=== PATIENT | male | born 1995 | race Two or more races ===

== ENCOUNTER 2022-10-16 07:24 | Emergency (ER) | payer SELFPAY ==
[~2022-10-16] VITALS: Ht 175.3 cm; Wt 90.0 kg
[2022-10-16 08:38] VITALS: BP 110/62
[2022-10-16] MEDS ORDERED: IBUP800T27 PO (08:54)
== END 2022-10-16 08:59 | disposition home or self-care (01) ==
LOC: ER 07:24
DX: S52.201A Unspecified fracture of shaft of right ulna, initial encounter for closed fracture (principal); W51.XXXA Accidental striking against or bumped into by another person, initial encounter; Y93.89 Activity, other specified; Y92.89 Other specified places as the place of occurrence of the external cause; Y99.8 Other external cause status
CPT/HCPCS: 29125; 73110

== ENCOUNTER 2024-05-13 10:28 | Emergency (ER) | payer SELFPAY ==
[~2024-05-13] VITALS: Ht 175.3 cm; Wt 92.0 kg
[~2024-05-13 10:28] MED LIST: IBUP-1456 PO
[2024-05-13] MEDS: cefTRIAXone 1GM/50ML D5W 50 ML IV ONE (11:13)
[2024-05-13] MEDS: fentaNYL CITRATE 100 MCG/2 ML VL IV ONE (11:29)
[2024-05-13] MEDS: NEOMYCIN-BACITRACIN-POLYM UNITDOSE PKG TOP OINT TOP ONE ×2 (11:54→12:27)
[2024-05-13] MEDS: SODIUM CHLORIDE 0.9% 1,000 ML IV ONE (12:27)
[2024-05-13 12:38] VITALS: TEMP 98.5; O2SAT 95
[2024-05-13 12:43] VITALS: BP 141/90; PULSE 80; RESP 20
[2024-05-13] MEDS: MORPHINE SULFATE INJ 2 MG/ml SYRG IV ONE (12:43)
[2024-05-13] MEDS: ONDANSETRON HCL 4 MG/2 ML VIAL IV ONE (12:44)
== END 2024-05-13 17:07 | disposition short-term general hospital (02) ==
LOC: ER 10:28
DX: T21.23XA Burn of second degree of upper back, initial encounter (principal); T22.212A Burn of second degree of left forearm, initial encounter; T31.11 Burns involving 10-19% of body surface with 10-19% third degree burns; X08.8XXA Exposure to other specified smoke, fire and flames, initial encounter; Y93.89 Activity, other specified; Y92.89 Other specified places as the place of occurrence of the external cause; Y99.8 Other external cause status
CPT/HCPCS: 96361; 96365; 96375; 99285; J0696; J2270; J2405; J3010; J7030

== ENCOUNTER 2024-05-15 12:55 | Emergency (ER) | payer SELFPAY ==
[~2024-05-15] VITALS: Ht 175.3 cm; Wt 90.2 kg
[2024-05-15] MEDS: SILVER SULFADIAZINE 1 % TOPICAL CREAM 50GM TOP ONE (15:26)
[2024-05-15] MEDS: MORPHINE SULFATE INJ 2 MG/ml SYRG IM ONE (15:26)
[2024-05-15 15:33] VITALS: TEMP 98.9; O2SAT 98
[2024-05-15 15:56] VITALS: BP 128/80; PULSE 85; RESP 16
== END 2024-05-15 17:01 | disposition home or self-care (01) ==
LOC: ER 12:55
DX: T21.21XD Burn of second degree of chest wall, subsequent encounter (principal); X08.8XXD Exposure to other specified smoke, fire and flames, subsequent encounter; Z88.6 Allergy status to analgesic agent; T31.11 Burns involving 10-19% of body surface with 10-19% third degree burns
CPT/HCPCS: 16020; 96372; 99283; J2270

== ENCOUNTER 2024-05-16 11:14 | Emergency (ER) | payer SELFPAY ==
[~2024-05-16] VITALS: Ht 175.3 cm; Wt 91.0 kg
[2024-05-16 13:00] VITALS: BP 129/55; PULSE 83; RESP 18; TEMP 99.5; O2SAT 98
[2024-05-17] MEDS ORDERED: CEPH500T PO (12:18)
== END 2024-05-16 13:18 | disposition home or self-care (01) ==
LOC: ER 11:14
DX: T30.0 Burn of unspecified body region, unspecified degree (principal); Z88.6 Allergy status to analgesic agent; X08.8XXD Exposure to other specified smoke, fire and flames, subsequent encounter

== ENCOUNTER 2024-05-17 11:20 | Emergency (ER) | payer SELFPAY ==
[~2024-05-17] VITALS: Ht 175.3 cm; Wt 91.2 kg
[2024-05-17] MEDS ORDERED: CEPH500T PO (12:18)
[2024-05-17] MEDS: SILVER SULFADIAZINE 1 % TOPICAL CREAM 50GM TOP ONE (12:26)
[2024-05-17 12:31] VITALS: BP 120/70; PULSE 88; RESP 18; TEMP 98.6; O2SAT 98
== END 2024-05-17 12:49 | disposition home or self-care (01) ==
LOC: ER 11:26
DX: T23.262A Burn of second degree of back of left hand, initial encounter (principal); Z79.899 Other long term (current) drug therapy; X08.8XXA Exposure to other specified smoke, fire and flames, initial encounter; Y93.89 Activity, other specified; Y92.89 Other specified places as the place of occurrence of the external cause; Y99.8 Other external cause status
CPT/HCPCS: 16020

== ENCOUNTER 2024-05-18 18:01 | Emergency (ER) | payer SELFPAY ==
[~2024-05-18] VITALS: Ht 175.3 cm; Wt 90.0 kg
[~2024-05-18 18:01] MED LIST changes: +CEPH500T PO
[2024-05-18 19:48] VITALS: TEMP 98.6
[2024-05-18] MEDS: HYDROcodone-ACET 5/325MG TAB PO ONE (20:22)
[2024-05-18] MEDS: BACITRACIN TOP OINT 1 UD PKG TOP ONE (20:23)
[2024-05-18 22:20] VITALS: BP 128/86; PULSE 89; RESP 18; O2SAT 100
== END 2024-05-18 22:20 | disposition home or self-care (01) ==
LOC: ER 18:01
DX: T21.04XD Burn of unspecified degree of lower back, subsequent encounter (principal); T22.00XD Burn of unspecified degree of shoulder and upper limb, except wrist and hand, unspecified site, subsequent encounter; Z88.6 Allergy status to analgesic agent; Z79.1 Long term (current) use of non-steroidal anti-inflammatories (NSAID); X08.8XXD Exposure to other specified smoke, fire and flames, subsequent encounter

== ENCOUNTER 2024-11-07 20:39 | Emergency (ER) | payer OTHER ==
[~2024-11-07] VITALS: Ht 175.3 cm; Wt 92.8 kg
[2024-11-07] MEDS: ONDANSETRON ODT 4 MG TAB PO ONE (00:40)
[2024-11-07] MEDS: KETOROLAC TROMETH 60MG/2ML VIAL IM ONE (00:45)
--- NOTE | 2024-11-07 21:09 | ED.PDOC ---
General HPI Comments 28-year-old male with no reported PMHx or PSHx presents with a chief complaint of groin pain x 1 hour ago with associated abdominal pain and nausea. Patient states that he worked out and was stretching when he then began to have sudden onset of right testicle pain and right inguinal abdominal pain. Patient reports that he is feeling nauseous, but "I don't have anything to throw up". Patient is tender to touch, unable to complete full physical exam. No other symptoms or modifying factors present at this time. Time Seen by MD: 21:00 Primary Care Provider: NONE Reviewed notes: Medications, Allergies Allergies: Coded Allergies: NO KNOWN ALLERGIES (Unverified , 10/16/22) Home Meds Active Scripts Ondansetron HCl (Ondansetron Hydrochloride) 8 Mg Tab, 8 MG PO Q6HP PRN, #30 TAB Prov:MEKHI MCCALL MD 11/07/24 Cephalexin Monohydrate (Cephalexin) 500 Mg Tab, 1 TAB PO QID, #40 TAB Prov:EJ JOHNSON 05/17/24 Ibuprofen (Ibuprofen) 800 Mg Tab, 1 TAB PO TID, #30 TAB Prov:EJ JOHNSON 10/16/22 Information Source: Patient Mode of Arrival: Ambulatory Severity: Moderate Inability to void: None Timing: Minutes Duration: Since onset Has not urinated for: Minutes Prehospital treatment: None Onset: Spontaneous Symptoms: None History of: None Location: Suprapubic Location male: R Scrotum Penile discharge: None Modifying factors: None Past Medical History PAST MEDICAL HISTORY: Denies Surgical History: Denies all surgeries Family History Family History: Reviewed,noncontributory to illness, Unknown Social History Smoker: Non-Smoker Alcohol: Occasionally Drugs: Denies Drug Use Lives In: Home Constitutional: denies: chills, diaphoresis, fatigue, fever, malaise, sweats, weakness, others EENTM: denies: blurred vision, double vision, ear bleeding, ear discharge, ear drainage, ear pain, ear ringing, eye pain, eye redness, hearing loss, mouth pain, mouth swelling, nasal discharge, nose bleeding, nose congestion, nose pain, photophobia, tearing, throat pain, throat swelling, voice changes, others Respiratory: denies: cough, hemoptysis, orthopnea, SOB at rest, shortness of breath, SOB with excertion, stridor, wheezing, others Cardiovascular: denies: chest pain, dizzy spells, diaphoresis, Dyspnea on exertion, edema, irregular heart beat, left arm pain, lightheadedness, palpitations, PND, syncope, others Gastrointestinal: reports: abdominal pain, nausea; denies: abdomen distended, blood streaked bowels, constipated, diarrhea, dysphagia, difficulty swallowing, hematemesis, melena, poor appetite, poor fluid intake, rectal bleeding, rectal pain, vomiting, others Genitourinary: reports: testicle pain; denies: burning, dysuria, flank pain, frequency, hematuria, incontinence, penile discharge, penile sore, pain, testicle swelling, urgency, others Neurological: denies: dizziness, fainting, headache, left sided numbness, left sided weakness, numbness, paresthesia, pre-existing deficit, right sided numbness, right sided weakness, seizure, speech problems, tingling, tremors, weakness, others Musculoskeletal: denies: back pain, gout, joint pain, joint swelling, muscle pain, muscle stiffness, neck pain, others Integumetry: denies: bruises, change in color, change in hair/nails, dryness, laceration, lesions, lumps, rash, wounds, others Allergic/Immunocompromised: denies: Difficulty Healing, Frequent Infections, Hives, Itching, others Hematologic/Lymphatic: denies: anemia, blood clots, easy bleeding, easy bruising, swollen glands, others Endocrine: denies: excessive hunger, excessive sweating, excessive thirst, excessive urination, flushing, intolerance to cold, intolerance to heat, unexplained weight gain, unexplained weight loss, others Psychiatric: denies: anxiety, bipolar disorder, depression, hopeless, panic disorder, schizophrenia, sleepless, suicidal, others All Other Systems: Reviewed and Negative Physical Exam General Appearance: No Apparent Distress, Normal HEENT: Normal ENT Inspection, Pharynx Normal, TMs Normal Neck: Full Range of Motion, Non-Tender, Normal, Normal Inspection Respiratory: Chest Non-Tender, Lungs Clear, No Accessory Muscle Use, No Respiratory Distress, Normal Breath Sounds Cardiovascular: No Edema, No JVD, No Murmur, No Gallop, Normal Peripheral Pulses, Regular Rate/Rhythm Breast Exam: Deferred Gastrointestinal: No Organomegaly, Non Tender, No Pulsatile Mass, Normal Bowel Sounds, Soft Genitalia: Deferred Pelvic: Deferred Rectal: Deferred Extremities: No calf tenderness, Normal capillary refill, Normal inspection, Normal range of motion, Non-tender, No pedal edema Musculoskeletal : Apperance: Normal Neurologic: Alert, insurance billing specialist II-XII nml as Tested, No Motor Deficits, Normal Affect, Normal Mood, No Sensory Deficits Cerebellar Function: Normal Reflexes: Normal Skin: Dry, Normal Color, Warm Lymphatic: No Adenopathy Was a procedure done? Was a procedure done?: No Differential Diagnosis Kidney stone (Female): Pyelonephritis, Urolithiasis, Other Penile/Scrotal: Testicular Torsion Urinary Problem (Male): Epididymitis, Urolithiasis Urinary Problem (Female): UTI, Other X-Ray, Labs, Meds, VS Vital Signs Date Time Temp Pulse Resp B/P (MAP) Pulse Ox O2 Delivery O2 Flow Rate FiO2 11/08/24 00:45 97.6 76 18 111/62 (78) 98 97.6 11/08/24 00:45 18 98 Room Air* 0 21 11/07/24 21:15 97.5 70 18 109/61 (77) 98 97.5 Lab Test 11/07/24 21:43 Range/Units White Blood Count 10.2 4.4-10.8 10^3/uL Red Blood Count 5.41 4.5-5.90 10^6/uL Hemoglobin 12.3 L 13.5-17.5 g/dL Hematocrit 37.7 L 41.0-53.0 % Mean Corpuscular Volume 69.7 L 80.0-100.0 fL Mean Corpuscular Hemoglobin 22.8 L 28.0-32.0 pg Mean Corpuscular Hemoglobin Concent 32.7 32.0-36.0 g/dL Red Cell Distribution Width 23.1 H 11.8-14.3 % Platelet Count 246 140-450 10^3/uL Mean Platelet Volume 7.2 6.9-10.8 fL Neutrophils (%) (Auto) 76.9 37.0-80.0 % Lymphocytes (%) (Auto) 17.1 10.0-50.0 % Monocytes (%) (Auto) 4.5 0.0-12.0 % Eosinophils (%) (Auto) 1.2 0.0-7.0 % Basophils (%) (Auto) 0.3 0.0-2.0 % Neutrophils # (Auto) 7.8 1.6-8.6 10 ^3/uL Lymphocytes # (Auto) 1.7 0.4-5.4 10 ^3/uL Monocytes # (Auto) 0.5 0-1.3 10 ^3/uL Eosinophils # (Auto) 0.1 0-0.8 10 ^3/uL Basophils # (Auto) 0 0-0.2 10 ^3/uL Nucleated Red Blood Cells 0.1 % Sodium Level 138 136-145 mmol/L Potassium Level 3.9 3.5-5.1 mmol/L Chloride Level 107 98-107 mmol/L Carbon Dioxide Level 26 20-31 mmol/L Anion Gap 5 5-15 Blood Urea Nitrogen 20 9-23 mg/dL Creatinine 1.02 0.700-1.30 mg/dL Glomerular Filtration Rate Calc 103 >90 mL/min BUN/Creatinine Ratio 19.6 10.0-20.0 Serum Glucose 112 H 74-106 mg/dL Calcium Level 9.5 8.7-10.4 mg/dL Total Bilirubin 0.6 0.2-1.0 mg/dL Aspartate Amino Transferase (AST) 15 13-40 U/L Alanine Aminotransferase (ALT) 17 7-40 U/L Alkaline Phosphatase 66 46-116 U/L Total Protein 7.4 5.7-8.2 g/dL Albumin 4.8 3.2-4.8 g/dL Lipase 45 12-53 U/L Time of 1ST Reevaluation: 21:30 Reevaluation 1ST: Unchanged Patient Education/Counseling: Diagnosis, Treatment, Prognosis Family Education/Counseling: No Family Present Sepsis Sepsis Reasesment Focused Exam Sepsis focused exam: focus exam completed, time: Departure 1 Departure Time of Disposition: 22:30 Impression: Primary Impression: Right groin pain Disposition: HOME / SELF CARE / HOMELESS Condition: Stable e-Prescriptions Ondansetron HCl (Ondansetron Hydrochloride) 8 Mg Tab 8 MG PO Q6HP PRN, #30 TAB Prov: MEKHI MCCALL MD 11/07/24 Discharged With: Self Critical Care Note Critical Care Time?: No Stability Stability form required: No Heart Score Heart Score: Heart Score Response (Comments) Value History N/A 0 EKG N/A 0 Age N/A 0 Risk Factors N/A 0 Troponin N/A 0 Total 0 I personally scribed for MEKHI MCCALL MD ([email or web address]) on 11/07/24 at 21:09. Electronically submitted by Nitin Gomez ([email or web address]). MEKHI MCCALL MD Nov 07, 2024 21:09
--- NOTE | 2024-11-07 21:54 | DVH ---
ULTRASOUND OF SCROTUM AND CONTENTS. INDICATION: right testicle pain COMPARISON: None TECHNIQUE: Multiple real-time grayscale sonographic and color and duplex Doppler images of the scrotu m and its contents were obtained. FINDINGS: RIGHT TESTICLE: Measures 4.4 X 2.9 X 3.3 cm. EPIDIDYMIS ON THE RIGHT MEASURES 15.4 MM. THERE IS A 7.4 X 6.7 X 5.5 MM CYST IN THE RIGHT EPIDIDYMIS LEFT TESTICLE: Measures 4.1 X 2.9 X 2.7 cm. Left epididymis measures 12.9 mm Cyst in the left epididymis measures 4.2 x 3.9 x 3.2 mm. Both testicles demonstrate homogeneous echotexture without evidence of focal lesions. The right epididymal head measures 15.4 cm. The left epididymal head measures 12.9 cm. Subsequent color and duplex Doppler interrogation of the testes demonstrated symmetric normal vascula r flow to both testicles. No focal areas of hyperemia were seen. IMPRESSION: 1. No evidence of torsion, epididymitis, and/or orchitis. 2. Right epididymis measures 15.4 mm ; left epididymis measures 12.9 mm. 3. There is a 7 mm cyst in the right epididymis 4 mm cyst in the left epididymis.
[2024-11-07 21:55] LABS: Basophils # (auto) 0 10 ^3/uL (0-0.2); Basophils % (auto) 0.3 % (0.0-2.0); Eosinophils # (auto) 0.1 10 ^3/uL (0-0.8); Eosinophils % (auto) 1.2 % (0.0-7.0); Hematocrit 37.7 % (41.0-53.0); Hemoglobin 12.3 g/dL (13.5-17.5); Lymphocytes # (auto) 1.7 10 ^3/uL (0.4-5.4); Lymphocytes % (auto) 17.1 % (10.0-50.0); Mean Corpuscular Hemoglobin 22.8 pg (28.0-32.0); Mean Corpuscular Hgb Conc. 32.7 g/dL (32.0-36.0); Mean Corpuscular Volume 69.7 fL (80.0-100.0); Monocytes # (auto) 0.5 10 ^3/uL (0-1.3); Monocytes % (auto) 4.5 % (0.0-12.0); Neutrophils # (auto) 7.8 10 ^3/uL (1.6-8.6); Neutrophils % (auto) 76.9 % (37.0-80.0); Nucleated Red Blood Cells % 0.1 %; Platelet Count (auto) 246 10^3/uL (140-450); Red Blood Cells 5.41 10^6/uL (4.5-5.90); Red Cell Distribution Width 23.1 % (11.8-14.3); White Blood Cell 10.2 10^3/uL (4.4-10.8)
--- NOTE | 2024-11-07 22:07 | DVH ---
CT SCAN ABDOMEN AND PELVIS WITHOUT CONTRAST CLINICAL HISTORY: right flank pain TECHNIQUE: Helical axial images are obtained from the lung bases through the pelvis without oral cont rast. No intravenous contrast was administered. Coronal and sagittal reformatted images were generate d from thin section reconstructions. One or more of the following radiation dose reduction techniques were used for this examination: automated exposure control, adjustment of the mA and/or kV according to patient size, use of iterative reconstruction technique. COMPARISON: Correlation made to scrotal ultrasound obtained earlier the same day. FINDINGS: LOWER THORAX: Imaged lung bases are grossly clear. ABDOMEN AND PELVIS: Evaluation of visceral and vascular structures is limited due to lack of contrast administration. As visualized, the unenhanced liver, spleen, pancreas and adrenals appear grossly unremarkable. No si zable, radiopaque cholelithiasis or biliary ductal dilatation. No hydroureteronephrosis or sizable, obstructing urinary tract calculi identified. No evidence of abdominal aortic aneurysm. No evidence of small-bowel obstruction. The appendix is not identified and may be surgically absent. Moderate volume stool throughout the colon and rectum. No free intraperitoneal air or fluid identifi ed. No sizable bladder calculus. No destructive osseous lesions identified. IMPRESSION: No bowel obstruction, free intraperitoneal air/fluid or sizable inflammatory collections identified o n this noncontrast examination.
[2024-11-07 22:09] LABS: Alanine Aminotransferase 17 U/L (7-40); Alkaline Phosphatase 66 U/L (46-116); Anion Gap 5 (5-15); Aspartate Aminotransferase 15 U/L (13-40); BUN/Creatinine Ratio 19.6 (10.0-20.0); Bilirubin, Total 0.6 mg/dL (0.2-1.0); Blood Urea Nitrogen 20 mg/dL (9-23); Calcium 9.5 mg/dL (8.7-10.4); Carbon Dioxide 26 mmol/L (20-31); Chloride 107 mmol/L (98-107); Lipase 45 U/L (12-53); Potassium 3.9 mmol/L (3.5-5.1); Sodium 138 mmol/L (136-145); Total Protein 7.4 g/dL (5.7-8.2)
[2024-11-07 22:10] LABS: Albumin 4.8 g/dL (3.2-4.8); Glucose 112 mg/dL (74-106)
[2024-11-07] MEDS ORDERED: ONDA-180 PO (22:48)
[2024-11-08 00:45] VITALS: BP 111/62; PULSE 76; RESP 18; TEMP 97.6; O2SAT 98
== END 2024-11-08 00:50 | disposition home or self-care (01) ==
LOC: ER 20:39
DX: R10.9 Unspecified abdominal pain (principal); R11.0 Nausea; N50.811 Right testicular pain; Z79.1 Long term (current) use of non-steroidal anti-inflammatories (NSAID); Z79.899 Other long term (current) drug therapy
CPT/HCPCS: 36415; 74176; 76870; 80053; 83690; 85025